=== PATIENT | male | born 1990 ===

== ENCOUNTER 2016-09-22 13:25 | Emergency (ER) | payer OTHER ==
[2016-09-22 13:59] LABS: BASOPHIL# 0.1 X 10^3uL (0.0-0.1); BASOPHILS 0.9 % (0.0-2.0); EOSINOPHILS 0.4 % (0.0-6.0); HEMATOCRIT 54.4 % (42.0-54.0); HEMOGLOBIN 18.7 g/dL (14.0-18.0); LYMPHOCYTES 32.1 % (20.0-40.0); MEAN CELL VOLUME 88.7 fL (80.0-100.0); MEAN CORPUS. HGB CONCENTRATION 34.4 g/dL (32.0-36.0); MEAN CORPUSCULAR HEMOGLOBIN 30.5 pg (29.0-35.0); MEAN PLATELET VOLUME 6.3 fL (7.4-10.4); MONOCYTES 4.2 % (2.0-10.0); MONOCYTES# 0.3 X 10^3uL (0.2-1.0); NEUTROPHILS 62.4 % (54.0-75.0); NEUTROPHILS# 3.9 X 10^3uL (2.6-6.7); PLATELET COUNT 362 X 10^3uL (130-440); RED BLOOD COUNT 6.14 X 10^6uL (4.20-6.10); RED CELL DISTRIBUTION WIDTH 13.4 % (11.5-14.5); WHITE BLOOD COUNT 6.3 X 10^3uL (3.9-10.7)
[2016-09-22 14:07] LABS: BLOOD UREA NITROGEN 9 mg/dL (9-20); CALCIUM 9.6 mg/dL (8.4-10.2); CHLORIDE 99 mmol/L (98-107); CREATININE 0.8 mg/dL (0.7-1.3); EST GLOMERULAR FILTRATION RATE > 60 mL/min; GLUCOSE 87 mg/dL (70-100); POTASSIUM 4.1 mmol/L (3.5-5.1); SODIUM 148 mmol/L (137-145)
[2016-09-22] MEDS ORDERED: THIAMINE HCL 200 MG/2 ML VIAL ONE (14:08)
[2016-09-22] MEDS ORDERED: MULTIVITAMINS 10 ML VIAL IV ONE (14:08)
[2016-09-22] MEDS ORDERED: NORMAL SALINE 1,000 ML IV ONE (14:08)
[2016-09-22] MEDS ORDERED: MAGNESIUM SULFATE 1 GM/2 ML VIAL ONE (14:08)
[2016-09-22 14:31] LABS: ETHYL ALCOHOL 424 mg/dL (<10)
--- NOTE | 2016-09-22 17:10 | ER PHYSICIAN DOCUMENTATION ---
Physician Documentation [facility] Name:Isaiah Guerrero Age:26 yrs Sex:Male :1990 Arrival Date:09/22/2016 Time:13:25 Bed4 Private MD: Frankie Vasquez Disposition: 09/22/16 16:27 Discharged to Home/Self Care. Impression: Alcohol Abuse. - Condition is Good. - Discharge Instructions: Abuse, Alcohol - ALCOHOL ABUSE. - Medical Reconciliation form form. - Follow up: Private Physician; When: As needed; Reason: Continuance of care. - Problem is new. - Symptoms have improved. HPI: 09/22 15:43 This 26 yrs old Unknown Male presents to ER via Private Vehicle with complaints of jm Alcohol Withdrawal. 15:43 The patient presents to the emergency department with a history of substance abuse, jm Type: vodka, whisky, 1 bottles per day, with a recent binge. Onset: The symptom(s)/episode began/occurred today. Past psychiatric history: ETOH addiction. Associated signs and symptoms: Pertinent positives; substance abuse, Pertinent negatives: suicide ideation, tremor. Severity of symptoms: in the emergency department the symptoms are unchanged. The patient has experienced a previous episode, many years ago, hx of w/d sz. The patient has not recently seen a physician. Pt tried to check into [facility] for rehab and was too intoxicated for them, so he came here. . Historical: - Allergies: Ceclor; SHELLFISH; - Home Meds: 1. statin - not currently taking - PMHx: hyperlipidemia; Hypertension; seizures with detox; 4x detox admissions in last year; DEPRESSION; suicide attempt 5 years ago; - PSHx: None; - Tetanus: < 10 years. - Ebola Screening: : Patient negative for fever greater than or equal to 101.5 degrees Fahrenheit, and additional compatible Ebola Virus Disease symptoms. Patient denies exposure to infectious person. Patient denies travel to an Ebola-affected area in the 21 days before illness onset. No symptoms or risks identified at this time. . - Immunization history: Pneumococcal vaccine is not up to date, Patient has never been vaccinated Flu Vaccine None. - Social history: Smoking status: Patient uses tobacco products, current every day smoker. Patient uses alcohol patient/guardian reports recent binge of alcohol consumption. Patient/guardian denies using marijuana. ROS: 15:45 Constitutional: Negative for fatigue, fever. jm 15:45 Abdomen/GI: Negative for abdominal pain, nausea, vomiting. 15:45 Skin: Negative for diaphoresis. 15:45 Psych: Positive for anxiety, alcohol dependence. 15:45 All other systems are negative. Exam: 15:45 Constitutional: The patient appears alert, awake, comfortable. jm 15:45 Cardiovascular: Rate: normal, Rhythm: regular. 15:45 Respiratory: Respirations: normal, Breath sounds: are normal. 15:45 Neuro: Mentation: is normal, Memory: is normal. 15:45 Psych: Behavior/mood is pleasant, cooperative, Affect is calm. Vital Signs: 14:06 BP 137 / 89; Pulse 85; Resp 16; Temp 98.4(O); Pulse Ox 92% on R/A; Weight 95.25 kg; sj Height 5 ft. 10 in. (177.80 cm); Pain 0/10; 14:30 Pulse Ox 83% on R/A; sj 14:32 Pulse Ox 96% on 2 lpm NC; sj 15:51 BP 144 / 76; Pulse 94; Resp 16; Pulse Ox 97% on 2 lpm NC; Pain 0/10; sj 16:50 BP 136 / 76; Pulse 94; Pulse Ox 93% on R/A; sj 14:06 Body Mass Index 30.13 (95.25 kg, 177.80 cm) MDM: 14:00 Patient medically screened. 15:46 Differential diagnosis: drug withdrawal. Data reviewed: vital signs, nurses notes, lab jm test result(s), and as a result, I will continue to observe the patient. Counseling: I had a detailed discussion with the patient and/or guardian regarding: the historical points, exam findings, and any diagnostic results supporting the discharge/admit diagnosis, lab results, the need for outpatient follow up, [facility] . ED course: Pt's labs normal. Pt given banana bag and NS. Pt ambulated after nap was cohereint and stable on his feet. . 16:38 ED course: Pt better after IVF. ETOH level is down. Pt can return back to [facility], . 09/22 14:01 Order name: CBC AUTO DIF, MDIF/RMOR IF IND; Complete Time: 15:22 EDMS 09/22 14:32 Order name: BASIC METABOLIC PANEL; Complete Time: 15:22 EDMS 09/22 14:32 Order name: MAGNESIUM; Complete Time: 15:22 EDMS 09/22 14:32 Order name: ETHYL ALCOHOL; Complete Time: 15:22 EDMS 09/22 16:31 Order name: ETHYL ALCOHOL; Complete Time: 16:38 EDMS 09/22 14:44 Order name: Oxygen; Complete Time: 14:44 sj Dispensed Medications: 13:55 Drug: NS 0.9% 1000 ml; Route: IV; Rate: bolus; Site: left antecubital; 14:40 Follow up: IV Status: Completed infusion; IV Intake: 1000ml sj 14:40 Drug: Banana Bag - (NS 0.9% 1000 ml, folic acid 600 mcg, Thiamine 100 mg, Multivitamin sj 10 ml, Magnesium Sulfate 1 grams); Route: IV; Rate: calculated rate; Site: left antecubital; 15:40 Follow up: IV Status: Completed infusion; IV Intake: 1000ml 15:34 Drug: NS 0.9% 1000 ml; Route: IV; Rate: 250 ml/hr; Site: left forearm; Delivery: lc [place] [facility]; 17:08 Follow up: IV Status: Infusion discontinued; IV Intake: 800ml Signatures: Harriett Goodrich RN RN Frankie Elkins MD MD jm Janzen, Sarah
--- NOTE | 2016-09-22 17:10 | ER NURSING DOCUMENTATION ---
Nurse's Notes [facility] Name:Isaiah Guerrero Age:26 yrs Sex:Male :1990 Arrival Date:09/22/2016 Time:13:25 Bed4 Private MD: Diagnosis:Alcohol Abuse Presentation: 09/22 13:41 Presenting complaint: Mother states: Drinking for last 5 days, had a pint of Vodka this sj am. Mother found 15 bottles of ETOH in his room. Yesterday emesis, last ate 2 days ago. Seizure from detox 1 year ago. [facility] reports BA of 0.421. Transition of care: Sho. Notified ED Physician of patient's arrival and CC Иван Jaffe notified. 13:41 Method Of Arrival: Private Vehicle 13:41 Acuity: ALIREZA 2 sj Triage Assessment: 14:04 General: Appears in no apparent distress, Behavior is cooperative, pleasant. Pain: sj Denies pain. Neuro: Level of Consciousness is awake, alert, obeys commands, Oriented to person, place, time, event, Speech is normal. Cardiovascular: Chest pain is denied. Respiratory: Respiratory effort is even, unlabored, Denies shortness of breath. Historical: - Allergies: Ceclor; SHELLFISH; - Home Meds: 1. statin - not currently taking - PMHx: hyperlipidemia; Hypertension; seizures with detox; 4x detox admissions in last year; DEPRESSION; suicide attempt 5 years ago; - PSHx: None; - Tetanus: < 10 years. - Ebola Screening: : Patient negative for fever greater than or equal to 101.5 degrees Fahrenheit, and additional compatible Ebola Virus Disease symptoms. Patient denies exposure to infectious person. Patient denies travel to an Ebola-affected area in the 21 days before illness onset. No symptoms or risks identified at this time. . - Immunization history: Pneumococcal vaccine is not up to date, Patient has never been vaccinated Flu Vaccine None. - Social history: Smoking status: Patient uses tobacco products, current every day smoker. Patient uses alcohol patient/guardian reports recent binge of alcohol consumption. Patient/guardian denies using marijuana. Screenin:06 Infectious Disease Risk None. Abuse screen: Denies threats or abuse. Denies injuries sj from another. Nutritional screening: no food intake x2 days. Suicide Risk Assessment: Suicidal Thinking Present - No ( 0 points), Past Attempts - Yes (1 point), Has Serious Health Problem - No ( 0 points), Lives Alone - No (0 points). Assessment: 14:06 See Triage Assessment done by same RN. Vital Signs: 14:06 BP 137 / 89; Pulse 85; Resp 16; Temp 98.4(O); Pulse Ox 92% on R/A; Weight 95.25 kg; sj Height 5 ft. 10 in. (177.80 cm); Pain 0/10; 14:30 Pulse Ox 83% on R/A; sj 14:32 Pulse Ox 96% on 2 lpm NC; sj 15:51 BP 144 / 76; Pulse 94; Resp 16; Pulse Ox 97% on 2 lpm NC; Pain 0/10; sj 16:50 BP 136 / 76; Pulse 94; Pulse Ox 93% on R/A; sj 14:06 Body Mass Index 30.13 (95.25 kg, 177.80 cm) ED Course: 13:31 Patient arrived in ED. arc 13:41 Venita Oates is Primary Nurse. sj 13:44 Triage completed. sj 13:45 Inserted peripheral IV: 20 gauge in left forearm and blood collected. lc 14:00 Frankie Oates MD is Attending Physician. jm 14:03 Labs drawn. (by ED staff). Sent per order to lab. lc 14:04 Seizure precautions initiated. Seizure pads on bed close monitoring by staff bedside lc monitoring initiated. 14:07 Valuables Given to family. Patient has correct armband on for positive identification. sj Placed in gown. Bed in low position. Call light in reach. Side rails up X2. Pulse Ox - RN Monitoring Only NIBP On - RN Monitoring Only. Lights dimmed. Warm blanket given. Administered Medications: 13:55 Drug: NS 0.9% 1000 ml; Route: IV; Rate: bolus; Site: left antecubital; 14:40 Follow up: IV Status: Completed infusion; IV Intake: 1000ml 14:40 Drug: Banana Bag - (NS 0.9% 1000 ml, folic acid 600 mcg, Thiamine 100 mg, Multivitamin sj 10 ml, Magnesium Sulfate 1 grams); Route: IV; Rate: calculated rate; Site: left antecubital; 15:40 Follow up: IV Status: Completed infusion; IV Intake: 1000ml 15:34 Drug: NS 0.9% 1000 ml; Route: IV; Rate: 250 ml/hr; Site: left forearm; Delivery: lc [place] Tubing; 17:08 Follow up: IV Status: Infusion discontinued; IV Intake: 800ml Intake: 14:40 IV: 1000ml; Total: 1000ml. sj 15:40 IV: 1000ml; Total: 2000ml. 17:08 IV: 800ml; Total: 2800ml. Outcome: 16:27 Discharge ordered by . brittny 17:[address] [facility] 17:06 Condition: improved 17:06 Report given to Binu CANTU at [facility], mother to drive patient back to facility. 17:06 Instructed on discharge instructions, follow up and referral plans. Demonstrated understanding of instructions. 17:09 Patient left the ED. Signatures: Harriett Goodrich RN RN lc Meyer, John, MD MD jm Chew, Amelia, Venita Thompson
== END 2016-09-22 17:09 | disposition home or self-care (01) ==
LOC: ER 13:25
DX: F10.229 Alcohol dependence with intoxication, unspecified (principal); F17.210 Nicotine dependence, cigarettes, uncomplicated; I10 Essential (primary) hypertension
CPT/HCPCS: 80048; 80320; 83735; 85025; 96361; 96365; 99283; J3475; J7030